=== PATIENT | female | born 1995 | race Two or more races ===

== ENCOUNTER 2024-12-26 19:18 | Emergency (ER) | payer MEDICAID, OTHER ==
[~2024-12-26] VITALS: Ht 165.1 cm; Wt 95.2 kg
--- NOTE | 2024-12-26 19:59 | ED.PDOC ---
History of Present Illness HPI Comments 29F presents to the ER w/ no prior Hx associated to the c/c of Abn Vaginal Bleeding. Pt reports on being 6.6 weeks w/ having light intercourse 2 days ago. Pt notes that the spotting happened earlier today. Denies chills, fever, N/V/D, SOB, CP or other associated symptom's, modifiers, or recent injur ies or sick contact at this time. Patient was mildly tachycardic at arrival. Chief Complaint: Vaginal Bleed Time Seen by MD: 19:45 Reviewed Notes: Nurses Notes, Medications, Allergies Allergies: Coded Allergies: NO KNOWN ALLERGIES (Unverified , 12/26/24) Information Source: Patient Mode of Arrival: Ambulatory Severity: Moderate Timing: Hours Duration: Since onset, Days Prehospital treatment: None Past Medical History PAST MEDICAL HISTORY: Denies Past Medical History (Other): Patient states she is 6-1/2 weeks . Surgical History: Denies all surgeries RN PEDIATRIC ICU History: No Pertinent RN PEDIATRIC ICU History Family History Family History: Reviewed,noncontributory to illness, Unknown Social History Smoker: Non-Smoker Alcohol: Denies ETOH Use Drugs: Denies Drug Use Lives In: Home Constitutional: denies: chills, diaphoresis, fatigue, fever, malaise, sweats, weakness, others EENTM: denies: blurred vision, double vision, ear bleeding, ear discharge, ear drainage, ear pain, ear ringing, eye pain, eye redness, hearing loss, mouth pain, mouth swelling, nasal discharge, nose bleeding, nose congestion, nose pain, photophobia, tearing, throat pain, throat swelling, voice changes, others Respiratory: denies: cough, hemoptysis, orthopnea, SOB at rest, shortness of breath, SOB with excertion, stridor, wheezing, others Cardiovascular: denies: chest pain, dizzy spells, diaphoresis, Dyspnea on exertion, edema, irregular heart beat, left arm pain, lightheadedness, palpitations, PND, syncope, others Gastrointestinal: reports: abdominal pain; denies: abdomen distended, blood streaked bowels, constipated, diarrhea, dysphagia, difficulty swallowing, hematemesis, melena, nausea, poor appetite, poor fluid intake, rectal bleeding, rectal pain, vomiting, others Genitourinary: reports: abnormal vagina bleeding, ; denies: burning, dyspareunia, dysuria, flank pain, frequency, hematuria, incontinence, pain, vagina discharge, urgency, others Neurological: denies: dizziness, fainting, headache, left sided numbness, left sided weakness, numbness, paresthesia, pre-existing deficit, right sided numbness, right sided weakness, seizure, speech problems, tingling, tremors, weakness, others Musculoskeletal: denies: back pain, gout, joint pain, joint swelling, muscle pain, muscle stiffness, neck pain, others Integumetry: denies: bruises, change in color, change in hair/nails, dryness, laceration, lesions, lumps, rash, wounds, others Allergic/Immunocompromised: denies: Difficulty Healing, Frequent Infections, Hives, Itching, others Hematologic/Lymphatic: denies: anemia, blood clots, easy bleeding, easy bruising, swollen glands, others Endocrine: denies: excessive hunger, excessive sweating, excessive thirst, excessive urination, flushing, intolerance to cold, intolerance to heat, unexplained weight gain, unexplained weight loss, others Psychiatric: denies: anxiety, bipolar disorder, depression, hopeless, panic disorder, schizophrenia, sleepless, suicidal, others All Other Systems: Reviewed and Negative Physical Exam General Appearance: Moderate Distress ( [id number] distress due to an xiety as much as any pain concerns.), Obese HEENT: Normal ENT Inspection, Pharynx Normal, TMs Normal Neck: Full Range of Motion, Non-Tender, Normal, Normal Inspection Respiratory: Chest Non-Tender, Lungs Clear, No Accessory Muscle Use, No Respiratory Distress, Normal Breath Sounds Cardiovascular: No Edema, No JVD, No Murmur, No Gallop, Normal Peripheral Pulses, Regular Rate/Rhythm Breast Exam: Deferred Gastrointestinal: No Organomegaly, Non Tender, No Pulsatile Mass, Normal Bowel Sounds, Soft Genitalia: Deferred Pelvic: Deferred Rectal: Deferred Extremities: No calf tenderness, Normal capillary refill, Normal inspection, Normal range of motion, Non-tender, No pedal edema Musculoskeletal : Apperance: Normal Neurologic: Alert, No Motor Deficits, Normal Affect, Normal Mood, No Sensory Deficits Cerebellar Function: Normal Reflexes: Normal Skin: Dry, Normal Color, Warm Lymphatic: No Adenopathy Was a procedure done? Was a procedure done?: No Differential Dx Considerations may include: UTI, threatened miscarriage, miscarriage X-Ray, Labs, Meds, VS Vital Signs Date Time Temp Pulse Resp B/P (MAP) Pulse Ox O2 Delivery O2 Flow Rate FiO2 12/26/24 22:35 60 18 100 Room Air 12/26/24 22:35 98.3 60 18 112/57 (75) 100 98.3 12/26/24 19:31 98.1 102 20 117/80 (92) 99 Lab Test 12/26/24 19:54 12/26/24 19:30 Range/Units Beta HCG, Quantitative 1888.4 H 1.5-4.2 mIU/mL Urine Color Yellow Yellow Urine Clarity Turbid H Clear Urine pH 5.5 5.0-9.0 Urine Specific [place] 1.030 1.001-1.035 Urine Protein Trace H Negative Urine Ketones Negative Negative Urine Blood 3+ H Negative /uL Urine Nitrite Negative Negative Urine Bilirubin Negative Negative Urine Urobilinogen Normal Negative mg/dL Urine Leukocyte Esterase 2+ Negative /uL Urine RBC 647 0 - 4 /hpf Urine Microscopic WBC 44 H 0-5 /HPF Urine Squamous Epithelial Cells Few <5 /hpf Urine Bacteria Few H None Seen /hpf Urine Hyaline Casts Few 0 - 2 /lpf Urine Mucus Few None Seen Urine Glucose Normal Normal mg/dL Current Medications Medications (Trade) Dose Ordered Sig/Chau Route Start Time Stop Time Status Last Admin Cephalexin (Keflex Capsule) 500 mg ONCE ONCE PO 12/26/24 22:15 12/26/24 22:16 DC 12/26/24 22:31 X-Ray, Labs, Meds, VS Comment All studies performed the ED were evaluated by me personally. Urinalysis confirmed a UTI. Patient was given a dose of antibiotics prior to discharge. Patient's beta-hCG was 1888. Patient seems to have experienced a miscarriage. Advised patient utilize antibiotics as directed and additionally, follow up with registered mail clerk for discussions related to what appears to be a miscarriage process. Time of 1ST Reevaluation: 23:57 Reevaluation 1ST: Improved Consultation: PCP, collarette separator Patient Education/Counseling: Diagnosis, Treatment, Prognosis Family Education/Counseling: Diagnosis, Treatment, No Family Present Departure 1 Departure Time of Disposition: 23:57 Impression: Primary Impression: Miscarriage Additional Impression: UTI (urinary tract infection) Disposition: 01 HOME / SELF CARE / HOMELESS Condition: Stable Additional Instructions: Advised patient utilize antibiotics as directed until completion as well as follow up with registered mail clerk for confirmation of complete elimination of products of conception. e-Prescriptions Acetaminophen (Acetaminophen) 500 Mg Tab 500 MG PO Q4HP PRN, #30 TAB Prov: AKASH ENGEL PAC 12/26/24 Cephalexin (KEFLEX CAPSULE) 250 Mg Cp 1 CAP PO QID for 7 Days, #28 CAP Prov: AKASH ENGEL PAC 12/26/24 Discharged With: Self, Friend Critical Care Note Critical Care Time?: No Stability Stability form required: No Heart Score Heart Score: Heart Score Response (Comments) Value History N/A 0 EKG N/A 0 Age N/A 0 Risk Factors N/A 0 Troponin N/A 0 Total 0 I personally scribed for AKASH ENGEL PAC ([email or web address]) on 12/26/24 at 19:59. Electronically submitted by Akin Peña ([email or web address]). AKASH ENGEL PAC Dec 26, 2024 19:59
[2024-12-26 20:00] LABS: Urine Bacteria FEW /hpf (None Seen); Urine Blood 3+ /uL (Negative); Urine Clarity Turbid (Clear); Urine Color Yellow (Yellow); Urine Hyaline Cast FEW /lpf (0 - 2); Urine Mucus FEW (None Seen); Urine Protein, UAD TRACE (Negative); Urine Squamous Epithelial Cell FEW /hpf (<5); Urine Urobilinogen Normal (Negative); Urine WBC 44 /HPF (0-5); Urine pH 5.5 (5.0-9.0)
--- NOTE | 2024-12-26 21:56 | DVH ---
OB ULTRASOUND <14 WEEKS: HISTORY: Vaginal bleed TECHNIQUE: Multiple real-time grayscale sonographic images of the pelvis with duplex Doppler color f low, spectral and M-mode analysis. TRANSDUCERS: Transabdominal FINDINGS: The uterus measures 7.1 x 4.4 x 6.6 cm The cervix non measure Right ovary measures 2.8 x 1.6 x 2.0 cm. with normal Doppler color flow. Volume of the right ovary is 4.6 cc. Left ovary measures 3.8 x 2.2 x 2.6 cm with normal Doppler color flow. Volume of the left ovary is 1 1.5 cc. There is a mixed mass in the left ovary measuring 1.4 x 0.9 x 1.0 cm may represent a collapsed follic le. Gestational sac 0.6 cm this is out of range for estimated gestational age No pole or artery seen IMPRESSION: 1. 0.6 cm gestational sac in the endometrium with no pole or heart rate. This gestational sac is out of range for estimating gestational age. 2. Structure in the left ovary may represent corpus luteal cyst. 3. Questionable subchorionic hemorrhage. 4. Multiple nabothian cysts
[2024-12-26] MEDS: CEPHALEXIN 250 MG CAP PO ONE (22:31)
[2024-12-26 22:35] VITALS: BP 112/57; PULSE 60; RESP 18; TEMP 98.3; O2SAT 100
[2024-12-26] MEDS ORDERED: CEPH250C PO (23:59)
[2024-12-26] MEDS ORDERED: ACET500T58 PO (23:59)
== END 2024-12-27 00:22 | disposition home or self-care (01) ==
LOC: ER 19:18
DX: O02.1 Missed abortion (principal); N39.0 Urinary tract infection, site not specified
CPT/HCPCS: 36415; 76801; 76817; 81001; 84702